=== PATIENT | male | born 1990 | race Caucasian/White ===

== ENCOUNTER 2023-06-06 14:35 | Emergency (ER) | payer SELFPAY ==
[~2023-06-06] VITALS: Ht 167.6 cm; Wt 70.0 kg
[2023-06-06 14:38] VITALS: O2SAT 98
[2023-06-06] MEDS ORDERED: HYDROCODONE/ACETAMINOPHEN 5/325MG TABLET PO ONE (15:45)
[2023-06-06] MEDS ORDERED: KETOROLAC 60MG/2ML VIAL IM ONE (20:45)
[2023-06-06 21:01] VITALS: BP 110/68
[2023-06-06 21:05] VITALS: PULSE 95; RESP 16; TEMP 98.6
== END 2023-06-06 21:05 | disposition home or self-care (01) ==
LOC: ER 14:35
DX: M54.50 Low back pain, unspecified (principal)
CPT/HCPCS: 72128; 72131; 72192; 99284